=== PATIENT | female | born 1970 | race Caucasian/White ===

== ENCOUNTER 2020-04-09 11:29 | Outpatient (REF) | payer OTHER, SELFPAY | END 2020-04-09 11:30 | disposition home or self-care (01) | LOC: HO.LAB 11:29 | PROVIDERS: PCP Hospitalist; Visit Provider Internal Medicine | DX: Z20.828 Contact with and (suspected) exposure to other viral communicable diseases (principal) | CPT/HCPCS: C9803; U0003 ==

== ENCOUNTER 2020-06-10 14:22 | Emergency (ER) | payer OTHER, SELFPAY ==
[2020-06-10 14:30] VITALS: BP 125/71; PULSE 92; RESP 16; TEMP 36.4; O2SAT 95; BMI 34.9
--- NOTE | 2020-06-10 14:54 | ECG_ITS ---
Test Reason : CP Blood Pressure : / mmHG Vent. Rate : 081 BPM Atrial Rate : 081 BPM P-R Int : 142 ms QRS Dur : 096 ms QT Int : 406 ms P-R-T Axes : 052 -06 035 degrees QTc Int : 471 ms Normal sinus rhythm Possible Anterolateral infarct , age undetermined Abnormal ECG No previous ECGs available Referred By: Valencia Wang Electronically Signed By:Brennen Khan
--- NOTE | 2020-06-10 14:55 | XR_ITS ---
EXAMINATION: XR CHEST CLINICAL INFORMATION: Chest pain. COMPARISON: None TECHNIQUE: Frontal view of the chest was obtained. FINDINGS: No significant abnormality is noted involving the heart, lungs, mediastinum, bony thorax or soft tissues. XR/XR chest 1V IMPRESSION: Unremarkable chest examination.
--- NOTE | 2020-06-10 14:59 | ED.GENADULT ---
HPI - General Adult General Chief complaint: General Medical Stated complaint: chest pain Time Seen by Provider: 06/10/20 14:33 Source: patient Mode of arrival: ambulatory History of Present Illness HPI narrative: 50-year-old female with a past medical history of asthma, breast CA, depression, HTN presenting to the ED complaining right jaw locking APNS, resolved at present spontaneously. Also reports chest pain beginning last night, described as pressure today with associated fatigue. Denies fever, chills, cough, SOB, abdominal pain, LE edema, recent travel, exposure to COVID Related Data Home Medications Medication Instructions Recorded Confirmed albuterol sulfate 90 mcg/actuation 2 puff PO Q6H PRN 03/21/20 03/21/20 aerosol inhaler [id number] 250 tab PO 03/21/20 03/21/20 mg-250 mg-65 mg tablet cetirizine 10 mg tablet 10 mg PO DAILY 03/21/20 03/21/20 famotidine 20 mg tablet mg PO 03/21/20 03/21/20 gabapentin 300 mg capsule 300 mg PO Q8H cap 03/21/20 03/21/20 hydrochlorothiazide 25 mg tablet 25 mg PO QAM 03/21/20 03/21/20 lisinopril 20 mg tablet 30 mg PO DAILY 03/21/20 03/21/20 fluoxetine 20 mg capsule 20 mg PO DAILY 03/29/20 Previous Rx's Medication Instructions Recorded fluticasone propionate 50 1 spray INTRANASAL DAILY PRN #15.8 03/14/20 mcg/actuation nasal ml spray,suspension fluoxetine 20 mg capsule 40 mg PO DAILY #180 cap 03/30/20 tamoxifen 10 mg tablet 20 mg PO DAILY #180 tab 05/08/20 sertraline 25 mg tablet 25 mg PO DAILY #30 tab 05/30/20 valacyclovir 500 mg tablet 500 mg PO DAILY #90 tab 06/05/20 Allergies Allergy/AdvReac Type Severity Reaction Status Date / Time oxycodone [OXYCODONE] Allergy Intermediate VOMITING Verified 03/21/20 15:15 acetaminophen [Percocet] Allergy Mild upset Verified 03/21/20 15:15 stomach Review of Systems Review of Systems: Constitutional: No Weight loss, No Fever, No Chills, + Fatigue, No Malaise ENT/Mouth: No Hearing loss, No Ear Pain, No Hoarseness, No sore throat, No Rhinorrhea, No Swallowing Difficulty, + locked jaw Eyes: No Eye Pain, No Swelling, No Redness, No Vision Changes Cardiovascular: + Chest Pain, No SOB, No Dyspnea on Exertion, No Edema Respiratory: No Cough, No Sputum, No Wheezing Gastrointestinal: No Nausea, No Vomiting, No Diarrhea, No Constipation, No Abdominal pain Musculoskeletal: No joint pain, No Myalgias, No Joint Swelling Skin: No Skin Lesions, No rash Yes all other systems are reviewed and are negative [facility] Past Medical History Attestation statement: The following information was validated with the patient. Source: nursing notes reviewed Medical History (Updated 06/10/20 @ 15:46 by BELKIS Manuel) Asthma Breast cancer Depression HTN (hypertension) Surgical History (Updated 03/20/20 @ 08:04 by ADRIANNA Easley) History of section History of hysterectomy History of surgery History of tubal ligation Family History Family History (Updated 03/20/20 @ 08:06 by ADRIANNA Easley) Father Diabetes Hypertension Mother Breast cancer Colon cancer Sister Overdose Family/Other FH: mental illness Substance abuse Social History Social History Advance Directives: No Advance Directives Information Provided: No Physical Exam Vital Signs: Vital Signs: Last Vital Signs Temp 97.5 F 06/10/20 14:30 Pulse 92 06/10/20 14:30 Resp 16 06/10/20 14:30 BP 125/71 06/10/20 14:30 Pulse Ox 95 06/10/20 14:30 Body Mass Index 34.9 Const: General: cooperative, healthy appearing, comfortable and no acute distress Orientation/consciousness: patient oriented x3 Limitations: no limitations HENMT: Other: No TMJ tenderness. Mild right sided jaw at the angle of mandible tenderness. No deformity. Dry ROM intact. No intraoral infection, uvula midline, talking in complete sentences. No lymphadenopathy Head: Yes normal to inspection Ears: hearing grossly normal bilaterally and TM's normal bilaterally General nose exam: Normal external nose present and Normal nares present Face and sinus: Yes normal facial exam and Yes face symmetric Mouth: Normal oral and palatal mucosa present, moist mucous membranes, no audible dysphonia, no drooling, no muffled voice and no trismus Throat: Yes posterior oropharynx normal, Yes tonsils normal and Yes uvula midline Eyes: General: appearance normal, both eyes and all related structures EOM: EOMs intact bilaterally Neck: Neck: Yes normal visual inspection, Yes full ROM, Yes no lymphadenopathy and Yes no meningeal signs Resp: Effort & Inspection: normal respiratory effort Auscultation: clear to auscultation bilaterally, no rales, no rhonchi and no wheezes Cardio: Rate: regular rate Heart sounds: S1 normal heart sound present and S2 normal heart sound present GI: Inspection: Yes normal to inspection Palpation (GI): Soft to palpation, nontender, no guarding and not rigid Skin: Rashes: no rashes Wounds: no wounds Neuro: General: patient oriented x3 and no meningeal signs Gait exam (Neuro): Normal gait present Extrem: Other: No LE edema or calf tenderness General: Yes normal to inspection Course Course Course Narrative: XR chest 1V IMPRESSION: Unremarkable chest examination. EKG nonischemic Labs notable for transaminitis. No priors to compare. Troponin negative 1700-- ED care transferred to [facility] pending COVID-19/flu/RSV and d/c Medical Decision Making [facility] Narrative Medical decision making narrative: 50-year-old female with a past medical history of asthma, breast CA, depression, HTN presenting to the ED complaining right jaw locking APNS, resolved at present spontaneously. On exam VSS, NAD, physical exam as above. Concern for atypical ACS vs transient lock jaw vs ? COVID-19 or viral syndrome. Low concern for PE. Plan: EKG, labs, CXR, COVID-19 testing, re-evaluate Lab Data Result diagrams: 06/10/20 16:07 06/10/20 16:07 Labs: Lab Results 06/10/20 06/10/20 06/10/20 Range/Units 16:07 16:07 16:07 WBC 8.5 (4.8-10.8) X10*3/uL RBC 4.10 L (4.20-5.50) X10*6/uL Hgb 12.5 (12.0-16.0) g/dl Hct 38.3 (37-47) % MCV 93.4 (80-98) fL MCH 30.5 (27.0-33.0) pg MCHC 32.6 (31.0-35.0) g/dl RDW 13.2 (11.0-16.0) % Plt Count 202 (160-400) X10*3/uL MPV 11.6 (9.4-12.3) fL Immature Gran % (Auto) 0.2 (0.0-0.4) % Neut % (Auto) 51.8 (45-73) % Lymph % (Auto) 37.5 (20-40) % Sandoval % (Auto) 8.2 (2-11) % Eos % (Auto) 1.9 (0-4) % Baso % (Auto) 0.4 (0-2) % Lymph # (Auto) 3.2 (1.2-4.9) X10*3/uL Sandoval # (Auto) 0.7 (0.1-1.2) X10*3/uL Eos # (Auto) 0.2 (0.0-0.4) X10*3/uL Baso # (Auto) 0.0 (0.0-0.2) X10*3/uL Abs Immat Gran (auto) 0.02 (0.00-0.03) X10*3/uL Absolute Neuts (auto) 4.4 (2.0-8.3) X10*3/uL Absolute Nucleated RBC 0.000 (0.0-0.012) X10*3/uL Nucleated RBC % (auto) 0.0 (0.0-0.2) /100WBC Hold Blue Top SEE NOTE Sodium 141 (135-145) mmol/L Potassium 3.9 (3.3-5.1) mmol/l Chloride 105 (96-108) mmol/L Carbon Dioxide 26 (22-29) mmol/L Anion Gap 14 (12-20) BUN 17 H (9-16) mg/dL Creatinine 0.84 (0.5-1.4) mg/dL Estim Creat Clear Calc 84.0 Estimated GFR > 60 Random Glucose 117 H (60-115) mg/dL Calcium 9.1 (8.4-10.2) mg/dL Magnesium 2.5 (1.6-2.6) mg/dL Total Bilirubin 0.4 (0.0-1.0) mg/dL Direct Bilirubin < 0.2 (0.0-0.5) mg/dL AST 45 H (5-31) U/L ALT 102 H (0-31) U/L Alkaline Phosphatase 60 (39-117) U/L Troponin I High Sens (<3.5-17.0) ng/L Total Protein 7.0 (6.5-8.0) g/dL Albumin 4.2 (3.5-5.0) g/dL 06/10/20 Range/Units 16:07 WBC (4.8-10.8) X10*3/uL RBC (4.20-5.50) X10*6/uL Hgb (12.0-16.0) g/dl Hct (37-47) % MCV (80-98) fL MCH (27.0-33.0) pg MCHC (31.0-35.0) g/dl RDW (11.0-16.0) % Plt Count (160-400) X10*3/uL MPV (9.4-12.3) fL Immature Gran % (Auto) (0.0-0.4) % Neut % (Auto) (45-73) % Lymph % (Auto) (20-40) % Sandoval % (Auto) (2-11) % Eos % (Auto) (0-4) % Baso % (Auto) (0-2) % Lymph # (Auto) (1.2-4.9) X10*3/uL Sandoval # (Auto) (0.1-1.2) X10*3/uL Eos # (Auto) (0.0-0.4) X10*3/uL Baso # (Auto) (0.0-0.2) X10*3/uL Abs Immat Gran (auto) (0.00-0.03) X10*3/uL Absolute Neuts (auto) (2.0-8.3) X10*3/uL Absolute Nucleated RBC (0.0-0.012) X10*3/uL Nucleated RBC % (auto) (0.0-0.2) /100WBC Hold Blue Top Sodium (135-145) mmol/L Potassium (3.3-5.1) mmol/l Chloride (96-108) mmol/L Carbon Dioxide (22-29) mmol/L Anion Gap (12-20) BUN (9-16) mg/dL Creatinine (0.5-1.4) mg/dL Estim Creat Clear Calc Estimated GFR Random Glucose (60-115) mg/dL Calcium (8.4-10.2) mg/dL Magnesium (1.6-2.6) mg/dL Total Bilirubin (0.0-1.0) mg/dL Direct Bilirubin (0.0-0.5) mg/dL AST (5-31) U/L ALT (0-31) U/L Alkaline Phosphatase (39-117) U/L Troponin I High Sens < 3.5 (<3.5-17.0) ng/L Total Protein (6.5-8.0) g/dL Albumin (3.5-5.0) g/dL ECG Data Attestation: I personally reviewed and interpreted this ECG as follows: Prior ECG tracings: not available for review Interpretation: EKG normal sinus rhythm with a rate of 81. Nonischemic. No priors to compare. No STEMI Discharge Plan Discharge Clinical Impression: Chest pain Patient Disposition: Home, Self-Care Instructions: Chest Pain (ED) Additional Instructions: Your blood work, chest x-ray, EKG were reassuring today in the emergency department You should follow-up with your primary care doctor as well as cardiology Make sure you're staying hydrated at home You can also follow-up with an ENT doctor for your jaw as needed Take Tylenol and Motrin at home for pain. Apply heat to jaw Prescriptions: No Action fluticasone propionate 50 mcg/actuation spray,suspension 1 spray intranasal DAILY PRN (Reason: allergy symptoms) Qty: 15.8 RF: 8 fluoxetine 20 mg capsule 20 mg PO DAILY RF: 0 fluoxetine 20 mg capsule 40 mg PO DAILY Qty: 180 RF: 0 tamoxifen 10 mg tablet 20 mg PO DAILY Qty: 180 RF: 2 sertraline 25 mg tablet 25 mg PO DAILY Qty: 30 RF: 6 valacyclovir 500 mg tablet 500 mg PO DAILY Qty: 90 RF: 0 lisinopril 20 mg tablet 30 mg PO DAILY RF: 0 famotidine 20 mg tablet PO RF: 0 cetirizine 10 mg tablet 10 mg PO DAILY RF: 0 hydrochlorothiazide 25 mg tablet 25 mg PO QAM RF: 0 albuterol sulfate 90 mcg/actuation HFA aerosol inhaler 2 puff PO Q6H PRNRF: 0 Headache Relief ([id number]) 250-250-65 mg tablet PO RF: 0 gabapentin 300 mg capsule 300 mg PO Q8H RF: 0 Referrals: Graeme Ramon [Physician] - 2 days (As needed) Evelio Lee MD [Physician] - 1 week
[2020-06-10 16:10] LABS: MANUAL DIFF FLAG NO
[2020-06-10 16:13] LABS: Basophils Percent Auto 0.4 % (0-2); Eosinophils Absolute Auto 0.2 X10*3/uL (0.0-0.4); Eosinophils Percent Auto 1.9 % (0-4); Hematocrit 38.3 % (37-47); Hemoglobin 12.5 g/dl (12.0-16.0); Imm Gran Abs Auto 0.02 X10*3/uL (0.00-0.03); Imm Gran Pct Auto 0.2 % (0.0-0.4); Lymphocytes Absolute Auto 3.2 X10*3/uL (1.2-4.9); Lymphocytes Percent Auto 37.5 % (20-40); Mean Corpuscular HGB Conc 32.6 g/dl (31.0-35.0); Mean Corpuscular Hemoglobin 30.5 pg (27.0-33.0); Mean Corpuscular Volume 93.4 fL (80-98); Mean Platelet Volume 11.6 fL (9.4-12.3); Monocytes Absolute Auto 0.7 X10*3/uL (0.1-1.2); Monocytes Percent Auto 8.2 % (2-11); Neutrophils Absolute Auto 4.4 X10*3/uL (2.0-8.3); Neutrophils Percent Auto 51.8 % (45-73); Platelet Count 202 X10*3/uL (160-400); Red Cell Distribution Width 13.2 % (11.0-16.0); White Blood Count 8.5 X10*3/uL (4.8-10.8)
[2020-06-10 16:52] LABS: Alanine Aminotransferase 102 U/L (0-31); Albumin Level 4.2 g/dL (3.5-5.0); Alkaline Phosphatase 60 U/L (39-117); Anion Gap 14 (12-20); Aspartate Amino Transferase 45 U/L (5-31); Bilirubin Direct < 0.2 mg/dL (0.0-0.5); Bilirubin Total 0.4 mg/dL (0.0-1.0); Blood Urea Nitrogen 17 mg/dL (9-16); Calcium 9.1 mg/dL (8.4-10.2); Carbon Dioxide 26 mmol/L (22-29); Chloride 105 mmol/L (96-108); Estimated Glomerular Filt Rate > 60; Glucose Random 117 mg/dL (60-115); Magnesium 2.5 mg/dL (1.6-2.6); Potassium 3.9 mmol/l (3.3-5.1); Sodium 141 mmol/L (135-145)
[2020-06-10 16:57] LABS: Troponin-I High Sensitivity < 3.5 ng/L (<3.5-17.0)
[2020-06-10 17:01] LABS: Influenza A PCR NEGATIVE (Negative); Influenza B PCR NEGATIVE (Negative); Resp Syncy Virus RNA Qual PCR NEGATIVE (Negative); SARS COV2 PCR INHOUSE NEGATIVE (Negative)
[2020-06-10 17:13] VITALS: BP 117/77; PULSE 64; RESP 16; TEMP 36.5; O2SAT 96
== END 2020-06-10 19:22 | disposition home or self-care (01) ==
PROVIDERS: Physician Assistant; Emergency Provider Emergency Medicine Emergency Medical Services; PCP Hospitalist
DX: R07.89 Other chest pain (principal); I10 Essential (primary) hypertension; Z79.899 Other long term (current) drug therapy; Z20.822 Contact with and (suspected) exposure to COVID-19
CPT/HCPCS: 0241U; 36415; 71045; 80048; 80076; 83735; 84484; 85025; 93005; 99283; 99284

== ENCOUNTER 2021-02-04 17:51 | Outpatient (REF) | payer OTHER, SELFPAY | END 2021-02-04 17:52 | disposition home or self-care (01) | LOC: HO.LNP 17:51 | PROVIDERS: Visit Provider Hospitalist | DX: N39.0 Urinary tract infection, site not specified (principal) | CPT/HCPCS: 87086; 87088; 87186 ==